=== PATIENT | male | born 1940 | race Hispanic/Latino ===

== ENCOUNTER 2023-10-12 15:33 | Observation (INO) | payer MEDICARE ==
[2023-10-12 17:34] VITALS: BMI 27.6
[2023-10-12] MEDS ORDERED: FLU VACC QS2023(65UP)/MF59C/PF 60 MCG/0.5 ML SYRINGE IM ONE (17:45)
[2023-10-12] MEDS ORDERED: Acetaminophen 325 MG TAB PO PRN (18:09)
[2023-10-12] MEDS ORDERED: Ondansetron PF 4 MG/2 ML Vial IVP PRN (18:09)
[2023-10-12] MEDS ORDERED: Dextrose 5% in Water 1,000 ML IV PRN (18:19)
[2023-10-12] MEDS ORDERED: HumaLOG 300 UNITS/3 ML VIAL SC PRN (18:19)
[2023-10-12] MEDS ORDERED: Polyethylene Glycol 3350 17 GM Packet PO PRN (18:19)
[2023-10-12] MEDS ORDERED: Docusate 100 MG CAP PO PRN (18:19)
[2023-10-12] MEDS ORDERED: Dextrose 50% Abboject 50 ML SYRINGE SLOW IVP PRN (18:19)
[2023-10-12] MEDS ORDERED: Glucagon 1 MG/ML KIT IM PRN (18:19)
[2023-10-12] MEDS ORDERED: Sodium Chloride 0.9% 1,000 ML IV SCH (18:30)
[2023-10-12 19:18] LABS: Troponin I 0.013 ng/mL (< 0.028)
[2023-10-12] MEDS ORDERED: Famotidine/PF 20 mg/2ml Vial SLOW IVP SCH (21:00)
[2023-10-12] MEDS ORDERED: Moxifloxacin 0.5% Opth Drop 3 ML BOT L EYE SCH (22:00)
[2023-10-12] MEDS ORDERED: BROMFENAC SODIUM 0.07% L EYE SCH (22:00)
[2023-10-12] MEDS: Atorvastatin Calcium 40 MG TAB PO SCH (22:14)
[2023-10-12] MEDS: Timolol 0.5% Ophth Soln 5 ml Bottle L EYE SCH (22:15)
[2023-10-12 22:41] LABS: Troponin I 0.011 ng/mL (< 0.028)
[2023-10-13] MEDS: prednisoLONE 1% Ophth Susp 5 ml Bottle L EYE SCH ×10 (02:24→20:25)
[2023-10-13 04:59] LABS: #Basophils 0.1 10x3/uL (0.0-0.2); #Eosinphils 0.5 10x3/uL (0.0-0.5); #Monocytes 0.5 10x3/uL (0.0-1.1); #Neutrophils 1.9 10x3/uL (1.5-8.4); %Basophils 1.2 % (0.0-2.0); %Eosinophils 11.6 % (0.0-6.0); %Lymphocytes 26.2 % (18.0-47.0); %Monocytes 13.1 % (0.0-10.0); %Neutrophils 47.7 % (40.0-75.0); Hematocrit 26.8 % (38.8-50.0); Hemoglobin 8.9 g/dL (13.5-17.5); Mean Corpuscular HGB CONC 33.2 g/dL (32.0-36.0); Mean Corpuscular Volume 99.3 fl (81.2-95.1); Mean Platelet Volume 9.3 fl (7.4-10.4); Platelet Count 183 10x3/uL (150-450); RBC Distribution Width 13.6 % (11.5-14.5); White Blood Cell (WBC) Count 4.1 10x3/uL (3.5-10.5)
[2023-10-13 05:10] LABS: Anion Gap 14 mmol/L (10-20); BUN (Urea Nitrogen) 41 mg/dL (8.4-25.7); Calc. Creatinine Clearance 20 mL/min (70-130); Calcium 7.9 mg/dL (7.8-10.44); Carbon Dioxide 16 mmol/L (23-31); Cardiac Risk 2.9 (Less than 4.5); Chloride 110 mmol/L (98-107); Cholesterol 114 mg/dl (< 200 Desired); Estimated GFR 21; Glucose 76 mg/dL (83-110); HDL Cholesterol 40 mg/dL (>60 Neg Risk); LDL Cholesterol, Calculated 60 mg/dL; Potassium 4.1 mmol/L (3.5-5.1); Sodium 136 mmol/L (136-145); Triglycerides 70 mg/dL (Less than 150)
[2023-10-13] MEDS: Famotidine 20 MG TAB PO SCH (09:44)
[2023-10-13] MEDS: Sodium Bicarbonate Tab 325 MG TAB PO SCH ×3 (09:44→20:27)
[2023-10-13] MEDS: Aspirin 81 mg Enteric Coated Tablet PO SCH (09:44)
[2023-10-13] MEDS: Ferrous Sulfate 325 MG TAB PO SCH (09:44)
[2023-10-13] MEDS: Timolol 0.5% Ophth Soln 5 ml Bottle L EYE SCH ×2 (09:48→20:25)
[2023-10-13] MEDS: Moxifloxacin 0.5% Opth Drop 3 ML BOT L EYE SCH ×4 (09:49→20:25)
[2023-10-13] MEDS ORDERED: hydrALAZINE 25 MG TAB PO SCH (12:30)
[2023-10-13] MEDS: hydrALAZINE 25 MG TAB PO SCH (20:27)
[2023-10-13] MEDS: Atorvastatin Calcium 40 MG TAB PO SCH (20:27)
[2023-10-13] MEDS ORDERED: Isosorbide Dinitrate 20 MG TAB PO SCH (21:00)
[2023-10-13] MEDS ORDERED: Famotidine/PF 20 mg/2ml Vial SLOW IVP SCH (21:00)
[2023-10-13] MEDS ORDERED: BROMFENAC SODIUM 0.07% L EYE SCH (21:00)
[2023-10-14] MEDS: prednisoLONE 1% Ophth Susp 5 ml Bottle L EYE SCH ×3 (03:01→07:19)
[2023-10-14 04:38] LABS: Hematocrit 29.5 % (38.8-50.0); Hemoglobin 9.7 g/dL (13.5-17.5); Mean Corpuscular HGB CONC 32.9 g/dL (32.0-36.0); Mean Corpuscular Volume 97.4 fl (81.2-95.1); Platelet Count 228 10x3/uL (150-450); RBC Distribution Width 13.3 % (11.5-14.5); Red Blood Cell (RBC) Count 3.03 10x6/uL (4.32-5.72); White Blood Cell (WBC) Count 4.6 10x3/uL (3.5-10.5)
[2023-10-14 04:44] LABS: Anion Gap 15 mmol/L (10-20); BUN (Urea Nitrogen) 41 mg/dL (8.4-25.7); Calc. Creatinine Clearance 22 mL/min (70-130); Calcium 8.3 mg/dL (7.8-10.44); Carbon Dioxide 17 mmol/L (23-31); Chloride 107 mmol/L (98-107); Estimated GFR 23; Glucose 78 mg/dL (83-110); Potassium 4.3 mmol/L (3.5-5.1); Sodium 135 mmol/L (136-145)
[2023-10-14] MEDS: hydrALAZINE 25 MG TAB PO SCH (11:38)
[2023-10-14] MEDS: Sodium Bicarbonate Tab 325 MG TAB PO SCH (11:39)
[2023-10-14] MEDS: Ferrous Sulfate 325 MG TAB PO SCH (11:39)
[2023-10-14] MEDS: Aspirin 81 mg Enteric Coated Tablet PO SCH (11:39)
[2023-10-14] MEDS: Famotidine 20 MG TAB PO SCH (11:39)
[2023-10-14] MEDS: Moxifloxacin 0.5% Opth Drop 3 ML BOT L EYE SCH (11:40)
[2023-10-14] MEDS: Timolol 0.5% Ophth Soln 5 ml Bottle L EYE SCH (11:40)
[2023-10-14 14:01] VITALS: BP 163/77; TEMP 97.6
== END 2023-10-14 15:01 | disposition home or self-care (01) ==
LOC: CSHTELE 16:06
PROVIDERS: ADMIT Internal Medicine; ATTEND Internal Medicine
DX: M62.81 Muscle weakness (generalized) (principal); R29.810 Facial weakness; R47.1 Dysarthria and anarthria; R61 Generalized hyperhidrosis; I13.0 Hypertensive heart and chronic kidney disease with heart failure and stage 1 through stage 4 chronic kidney disease, or unspecified chronic kidney disease; I50.22 Chronic systolic (congestive) heart failure; E11.22 Type 2 diabetes mellitus with diabetic chronic kidney disease; N18.30 Chronic kidney disease, stage 3 unspecified; E78.5 Hyperlipidemia, unspecified; I25.10 Atherosclerotic heart disease of native coronary artery without angina pectoris; J44.9 Chronic obstructive pulmonary disease, unspecified; Z95.1 Presence of aortocoronary bypass graft; Z87.891 Personal history of nicotine dependence; N17.9 Acute kidney failure, unspecified; I21.4 Non-ST elevation (NSTEMI) myocardial infarction; D64.9 Anemia, unspecified; Z79.82 Long term (current) use of aspirin; Z79.899 Other long term (current) drug therapy
CPT/HCPCS: 70551; 71250; 80048 ×2; 80061; 82962 ×2; 84484; 85025; 85027; 93306; 93880; 94760 ×2; 96372 ×2; 96374; 97116; 97535; G0378 ×3; 36415; 36416; J1650; J7050; S0028